=== PATIENT | male | born 1950 | race Caucasian/White ===

== ENCOUNTER 2024-02-09 13:52 | Emergency (ER) | payer MEDICARE, OTHER ==
[~2024-02-09] VITALS: Ht 170.2 cm; Wt 72.6 kg
[2024-02-09 14:12] LABS: BASOPHILS # (AUTO) 0.2 K/UL (0.0-0.2); HEMATOCRIT 35.8 % (36.7-47.1); HEMOGLOBIN 11.5 g/dL (12.5-16.3); LYMPHOCYTES # (AUTO) 1.1 K/uL (0.8-4.8); LYMPHOCYTES % (AUTO) 4.4 % (20.5-51.5); MEAN CORPUSCULAR HEMOGLOBIN 27.8 uug (23.8-33.4); MEAN CORPUSCULAR HGB CONC 32 g/dL (32.5-36.3); MEAN CORPUSCULAR VOLUME 86.1 fL (73.0-96.2); MONOCYTES # (AUTO) 0.8 K/uL (0.1-1.30); MONOCYTES % (AUTO) 3.5 % (0.0-11.0); NEUTROPHILS # (AUTO) 21.5 K/uL (1.8-8.9); NEUTROPHILS % (AUTO) 91.1 % (38.5-71.5); PLATELET COUNT (AUTO) 549 K/uL (152-348); RED BLOOD CELL COUNT(AUTO) 4.16 MIL/uL (4.06-5.63); RED CELL DISTRIBUTION WIDTH 14.1 % (12.1-16.2); WHITE BLOOD COUNT (AUTO) 23.6 K/uL (3.6-10.2)
[2024-02-09] MEDS: IV NORMAL SALINE 1000 ML BAG IV ONE (14:15)
[2024-02-09 14:44] LABS: DIFFERENTIAL COMMENT 1
[2024-02-09 14:54] LABS: ALANINE AMINOTRANSFERASE 59 U/L (16-63); ALBUMIN 2.6 g/dL (3.4-5.0); ALKALINE PHOSPHATASE 92 U/L (50-136); ASPARTATE AMINOTRANSFERASE 138 U/L (15-37); BILIRUBIN,DIRECT 0.2 mg/dL (0.0-0.2); BILIRUBIN,TOTAL 0.3 mg/dL (0.2-1.0); CALCIUM 9.3 mg/dL (8.5-10.1); CARBON DIOXIDE 22 mmol/L (21-32); CHLORIDE 106 mmol/L (98-107); CREATININE 1.5 mg/dL (0.6-1.3); GLUCOSE 177 mg/dL (74-106); NT-PRO BNP 12897 pg/mL (0-125); POTASSIUM 4.9 mmol/L (3.5-5.1); SODIUM SERUM 141 mmol/L (136-145); TOTAL PROTEIN, SERUM 7.2 g/dL (6.4-8.2); UREA NITROGEN, BLOOD 21 mg/dL (7-18)
[2024-02-09] MEDS: CEFTRIAXONE 2 G in IV DEXTROSE 5% 100 ML IV ONE (15:27)
[2024-02-09] MEDS ORDERED: IOHEXOL 350 100 ML INFUS..BTL ONE (15:37)
[2024-02-09] MEDS ORDERED: SWABABLE VALVE TRANSFER SET EA MC ONE (15:37)
[2024-02-09] MEDS ORDERED: IV NORMAL SALINE 250 ML IV ONE (15:37)
[2024-02-09] MEDS ORDERED: ACET500C4 PO (15:59)
[2024-02-09] MEDS ORDERED: ASPI-1420 PO (15:59)
[2024-02-09] MEDS ORDERED: OMEP20TA5 PO (15:59)
[2024-02-09] MEDS ORDERED: MAGN400T26 PO (15:59)
[2024-02-09] MEDS ORDERED: ERGO500040 PO (15:59)
[2024-02-09 16:06] LABS: LACTIC ACID 2.6 mmol/L (0.4-2.0)
[2024-02-09] MEDS ORDERED: LIDOCAINE 1%-EPI 1:100,000 20 ML VIAL ONE (17:57)
[2024-02-09] MEDS: LIDOCAINE 1%-EPI 1:100,000 20 ML VIAL IJ ONE (18:00)
[2024-02-09] MEDS ORDERED: ACETAMINOPHEN 325 MG TABLET PO PRN (19:00)
[2024-02-09] MEDS ORDERED: MAGNESIUM HYDROXIDE 30 ML LIQUID UDC PO PRN (19:00)
[2024-02-09] MEDS ORDERED: ONDANSETRON 4 MG/2 ML VIAL IV PRN (19:00)
[2024-02-09] MEDS ORDERED: REMEDY ESSENTIAL ZINC PASTE 113 GM TP PRN (19:00)
[2024-02-09 20:25] LABS: TOTAL VOLUME,BODY FLUID 1900 mL; WBC, BODY FLUID 669 /cu. mm (0-200/cu.mm)
[2024-02-09 20:39] LABS: PROTEIN, BODY FLUID 3.3 G/DL
[2024-02-09 20:41] LABS: ALBUMIN,BODY FLUID 1.7 g/dL
[2024-02-09 21:16] LABS: POLYNUCLEAR, BODY FLUID 30 % (0-25%)
[2024-02-09 21:17] LABS: MONOCYTES,BODY FLUID 48 %
[2024-02-09 23:15] VITALS: BP 114/77; O2SAT 92
[2024-02-10] MEDS ORDERED: PANTOPRAZOLE SODIUM 40 MG TABLET.DR PO SCH (07:00)
[2024-02-10] MEDS ORDERED: MAGNESIUM OXIDE 400 MG TABLET PO SCH (09:00)
[2024-02-10] MEDS ORDERED: CEFTRIAXONE 1 G in IV DEXTROSE 5% 50 ML IV SCH (15:00)
== END 2024-02-09 22:00 | disposition left against medical advice (07) ==
LOC: ER 13:52
DX: J96.00 Acute respiratory failure, unspecified whether with hypoxia or hypercapnia (principal); J90 Pleural effusion, not elsewhere classified; C34.90 Malignant neoplasm of unspecified part of unspecified bronchus or lung; I25.10 Atherosclerotic heart disease of native coronary artery without angina pectoris; Z79.82 Long term (current) use of aspirin; Z79.899 Other long term (current) drug therapy; Z85.118 Personal history of other malignant neoplasm of bronchus and lung
CPT/HCPCS: 32554; 36415; 71045; 71275; 74177; 80048; 80076; 82040; 82945; 83605; 83615; 83880; 83986; 84145; 84155; 84484; 85025; 85730; 87040; 87070; 87075; 87205; 93005; 96365; 99291; J0696; J3490; J7040; Q9967; A4606; A4663